=== PATIENT | female | born 2000 | race Two or more races ===

== ENCOUNTER 2019-11-20 22:00 | Emergency (ER) | payer OTHER ==
[2019-11-20 22:07] VITALS: BP 113/65; PULSE 66; TEMP 98
[2019-11-20] MEDS ORDERED: CEPHALEXIN MONOHYDRATE 500 MG CAPSULE (UD) PO ONE (23:05)
[2019-11-20] MEDS ORDERED: DIPHTH,PERTUSS(ACELL),TET 0.5 ML DISP.SYRIN IM ONE ×2 (23:05→23:15)
--- NOTE | 2019-11-20 23:09 | PDOC ---
History of Present Illness - General Chief Complaint: Pain Stated Complaint: PAIN Time Seen by Provider: 11/20/19 22:13 - History of Present Illness Initial Comments: 11/20/19 23:06 19-year-old female without comorbidities assures me there is no chance of presents for evaluation of bilateral hand pain. Patient states she was doing work in her closet at home when she fell and tripped while she was carrying a heavy piece of furniture which was made at a [employer]. She has 2 small abrasions on the area of the thenar eminence bilaterally. She complains of bilateral hand pain. She is unsure if she has a retained foreign body. Past History - Medical History Allergies/Adverse Reactions: Allergies Allergy/AdvReac Type Severity Reaction Status Date / Time No Known Allergies Allergy Verified 11/20/19 22:07 Home Medications: Ambulatory Orders Cephalexin [Keflex] 500 mg PO QID #28 capsule 11/20/19 COPD: No - Reproductive History Is Patient Now?: No - Psycho-Social/Smoking History Smoking History: Current some day smoker Information on smoking cessation initiated: No - Substance Abuse Hx (Audit-C & DAST Scrn) How often the patient has a drink containing alcohol: Never Score: In Men: 4 or > Positive; In Women: 3 or > Positive: 0 Screen Result (Pos requires Nsg. Audit-10AR): Negative In the last yr the pt used illegal drug/Rx for NonMed reason: Yes Score: Yes response is considered Positive: 1 Screen Result (Positive result requires Nsg. DAST-10): Positive Review of Systems - Review of Systems Musculoskeletal: Yes: See HPI *Physical Exam - Vital Signs Last Vital Signs Temp Pulse Resp BP Pulse Ox 98 F 66 18 113/65 100 11/20/19 22:04 11/20/19 22:04 11/20/19 22:04 11/20/19 22:04 11/20/19 22:04 - Physical Exam 11/20/19 23:06 Shoulder wrist and forearm range of motion is full and nonpainful. Bilateral hand tenderness diffusely. 2 small superficial abrasions on the first webspace bilaterally. Decreased range of motion of all the fingers without gross focal tenderness. No gross sensorimotor deficits neurovascular intact. Payroll Associate strength is decreased ED Treatment Course - RADIOLOGY Radiology Studies Ordered: Category Date Time Status HAND- LEFT [RAD] Stat Radiology 11/20/19 22:35 Taken HAND- RIGHT [RAD] Stat Radiology 11/20/19 22:35 Taken Medical Decision Making - Medical Decision Making 11/20/19 23:07 X-rays of bilateral hands show no evidence of destructive process fracture. There is subcutaneous air in the thenar eminence of the right hand. Prophylactic antibiotic given initial dose in the emergency room tetanus updated. Hand surgery follow-up stressed. Follow-up within 24 hours or return to the emergency room for wound check. I have reviewed the pathophysiology with the patient. They are in agreement with the treatment plan all questions were answered to their satisfaction. Understanding for follow-up without fail was also conveyed to the patient. Again they are in agreement. Discharge - Discharge Information Problems reviewed: Yes Clinical Impression/Diagnosis: Hand injury Clinical Impression/Diagnosis: (Ruled Out): Hand crush injury Condition: Stable Disposition: HOME - Admission No - Additional Discharge Information Prescriptions: Cephalexin [Keflex] 500 mg PO QID #28 capsule - Follow up/Referral Referrals: Arun Mares MD [Primary Care Provider] - - Patient Discharge Instructions Additional Instructions: Tylenol and Motrin as directed for pain. Please start the antibiotic and take them as directed tomorrow. Without fail follow-up with hand surgery in 24 hours or return to the emergency room in 24 hours for further evaluation and wound check. Please take the antibiotics as directed. Return to the emergency room sooner if problems develop. Gentle range of motion as we discussed in the emergency room prevent stiffness will help you. Keep the areas clean with soap and water and left open to air do not apply any ointment such as bacitracin or Neosporin. - Post Discharge Activity
[2019-11-20] MEDS ORDERED: CEPHALEXIN MONOHYDRATE 500 MG CAPSULE (UD) ONE (23:15)
== END 2019-11-20 23:21 | disposition home or self-care (01) ==
LOC: JER 22:00
PROC: 3E0234Z Introduction of Serum, Toxoid and Vaccine into Muscle, Percutaneous Approach (ICD-10-PCS; principal; 2019-11-20)
DX: M79.641 Pain in right hand (principal); M79.642 Pain in left hand
CPT/HCPCS: 73130-TC-LT-FY; 73130-TC-RT-FY; 90715; 99284-25

== ENCOUNTER 2020-12-24 15:22 | Emergency (ER) | payer OTHER ==
[2020-12-24 15:33] VITALS: BP 107/62; PULSE 91; TEMP 98.2; BMI 20.7
[2020-12-24] MEDS ORDERED: FAMOTIDINE 20 MG/50 ML IVPB 20 MG/50 ML MG IVPB ONE ×2 (16:38→16:54)
[2020-12-24] MEDS ORDERED: SODIUM CHLORIDE 1,000 ML IV STA (16:38)
[2020-12-24] MEDS ORDERED: METOCLOPRAMIDE HCL INJECTION 10 MG/2 ML VIAL IVPB ONE (16:38)
[2020-12-24 16:52] LABS: BASO % 0.1 % (0-2.0); EOS % 0.2 % (0-4.5); HEMATOCRIT 38.7 % (32.4-45.2); HEMOGLOBIN 13.2 GM/dL (10.7-15.3); LYMPH % 15.5 % (8-40); MCH 30.9 pg (25.7-33.7); MCHC 34.1 g/dl (32.0-36.0); MEAN CELL VOLUME 90.7 fl (80-96); MEAN PLT VOLUME 9.1 fl (7.5-11.1); MONO % 9.2 % (3.8-10.2); PLATELET COUNT 232 10^3/uL (134-434); RBC 4.27 M/mm3 (3.60-5.2); RDW 12.8 % (11.6-15.6); WHITE BLOOD COUNT 6.2 K/mm3 (4.0-10.0)
[2020-12-24] MEDS ORDERED: METOCLOPRAMIDE HCL INJECTION 10 MG/2 ML VIAL ONE (16:54)
[2020-12-24 16:55] LABS: EPI CELLS 20 /uL (0-25.1); HYALINE CASTS 3 /uL (0-3.1); PH,URINE 8.5 (5.0-8.0); URINE APPEARANCE CLEAR; URINE BACTERIA 136 /uL (0-1359); URINE BILIRUBIN NEGATIVE (NEGATIVE); URINE COLOR YELLOW; URINE GLUCOSE (UA) NEGATIVE (NEGATIVE); URINE KETONE 4+ (NEGATIVE); URINE LEUK ESTERASE NEGATIVE (NEGATIVE); URINE NITRITE NEGATIVE (NEGATIVE); URINE PROTEIN 1+ (NEGATIVE); URINE RBC 3 /uL (0-23.9); URINE WBC 5 /uL (0-25.8)
[2020-12-24 17:12] LABS: CALCIUM 9.6 mg/dL (8.5-10.1)
[2020-12-24 17:13] LABS: BLOOD UREA NITROGEN 5.9 mg/dL (7-18)
[2020-12-24 17:16] LABS: CREATININE 0.5 mg/dL (0.55-1.3)
[2020-12-24 17:17] LABS: BILIRUBIN,TOTAL 0.8 mg/dL (0.2-1); TOT PROT 8.6 g/dl (6.4-8.2)
== END 2020-12-24 20:45 | disposition home or self-care (01) ==
LOC: JER 15:22
PROC: 3E033NZ Introduction of Analgesics, Hypnotics, Sedatives into Peripheral Vein, Percutaneous Approach (ICD-10-PCS; principal; 2020-12-24)
PROC: 3E033GC Introduction of Other Therapeutic Substance into Peripheral Vein, Percutaneous Approach (ICD-10-PCS; 2020-12-24)
PROC: 3E0337Z Introduction of Electrolytic and Water Balance Substance into Peripheral Vein, Percutaneous Approach (ICD-10-PCS; 2020-12-24)
DX: O26.891 Other specified pregnancy related conditions, first trimester (principal); R11.2 Nausea with vomiting, unspecified; Z3A.01 Less than 8 weeks gestation of pregnancy
CPT/HCPCS: 36415; 76801-TC; 80053; 81003; 83690; 84702; 85025; 86850; 86900; 86901; 87086; 99283-25; 99284-25

== ENCOUNTER 2022-06-26 19:13 | Emergency (ER) | payer OTHER ==
[2022-06-26 19:19] VITALS: BP 129/63; PULSE 74; RESP 18; TEMP 98.7; BMI 25.7
[2022-06-26 21:29] LABS: PH,URINE 7.5 (5.0-8.0); URINE APPEARANCE CLEAR; URINE BILIRUBIN NEGATIVE (NEGATIVE); URINE COLOR YELLOW; URINE GLUCOSE (UA) NEGATIVE (NEGATIVE); URINE KETONE NEGATIVE (NEGATIVE); URINE LEUK ESTERASE NEGATIVE (NEGATIVE); URINE NITRITE NEGATIVE (NEGATIVE); URINE PROTEIN NEGATIVE (NEGATIVE); URINE UROBILINOGEN 0.2 mg/dL (0.2-1.0)
[2022-06-26 21:32] LABS: HCG,QUALITATIVE URINE Negative
[2022-06-26] MEDS ORDERED: LACTATED RINGERS SOLUTION 1000 ML INFUS.BAG IV ONE (21:59)
[2022-06-26] MEDS ORDERED: ACETAMINOPHEN 1000 MG/100 ML BAG IVPB ONE (21:59)
[2022-06-26] MEDS ORDERED: PROCHLORPERAZINE INJECTION 10 MG/2 ML VIAL IVPB ONE (22:00)
[2022-06-26] MEDS ORDERED: PROCHLORPERAZINE INJECTION 10 MG/2 ML VIAL ONE (22:08)
[2022-06-26] MEDS ORDERED: ACETAMINOPHEN INJECTION 100 ML IVPB ONE (22:13)
[2022-06-26 22:27] LABS: BASO % 0.2 % (0-2.0); EOS % 0.2 % (0-4.5); HEMATOCRIT 40.8 % (32.4-45.2); HEMOGLOBIN 13.8 GM/dL (10.7-15.3); LYMPH % 14.6 % (8-40); MCH 29.5 pg (25.7-33.7); MCHC 33.8 g/dl (32.0-36.0); MEAN CELL VOLUME 87.2 fl (80-96); MEAN PLT VOLUME 8.7 fl (7.5-11.1); MONO % 6.2 % (3.8-10.2); NEUT % 78.8 % (42.8-82.8); PLATELET COUNT 244 10^3/uL (134-434); RBC 4.68 M/mm3 (3.60-5.2); RDW 14.4 % (11.6-15.6); WHITE BLOOD COUNT 5.9 K/mm3 (4.0-10.0)
[2022-06-26 22:48] LABS: ALBUMIN 4.6 g/dl (3.4-5.0); CALCIUM 9.6 mg/dL (8.5-10.1)
[2022-06-26 22:51] LABS: CREATININE 0.7 mg/dL (0.55-1.3)
[2022-06-26 22:52] LABS: BLOOD UREA NITROGEN 8.3 mg/dL (7-18)
[2022-06-26 22:53] LABS: BILIRUBIN,TOTAL 0.6 mg/dL (0.2-1); TOT PROT 8.5 g/dl (6.4-8.2)
== END 2022-06-26 22:41 | disposition left against medical advice (07) ==
LOC: JERFT 19:13
PROC: 3E033GC Introduction of Other Therapeutic Substance into Peripheral Vein, Percutaneous Approach (ICD-10-PCS; principal; 2022-06-26)
DX: R51.9 Headache, unspecified (principal)
CPT/HCPCS: 36415; 80053; 81003; 84703; 85025; 99284-25

== ENCOUNTER 2023-09-14 16:22 | Emergency (ER) | payer OTHER ==
[2023-09-14 16:31] VITALS: BP 110/59; PULSE 75; RESP 20; TEMP 98; BMI 25.9
== END 2023-09-14 19:00 | disposition left against medical advice (07) ==
LOC: JER 16:22
DX: Z53.21 Procedure and treatment not carried out due to patient leaving prior to being seen by health care provider (principal)
CPT/HCPCS: 99281-25

== ENCOUNTER 2024-01-14 16:48 | Emergency (ER) | payer OTHER ==
[2024-01-14 17:06] VITALS: BP 124/76; PULSE 58; RESP 18; TEMP 98.8; BMI 25.9
[2024-01-14] MEDS ORDERED: METOCLOPRAMIDE HCL INJECTION 10 MG/2 ML VIAL ONE (18:36)
[2024-01-14] MEDS ORDERED: ACETAMINOPHEN INJECTION 100 ML ONE (18:37)
[2024-01-14] MEDS: ACETAMINOPHEN 1000 MG/100 ML BAG IVPB ONE (18:47)
[2024-01-14] MEDS: METOCLOPRAMIDE HCL INJECTION 10 MG/2 ML VIAL IVPB ONE (18:52)
[2024-01-14 20:06] LABS: HIV INTERPRETATION NEGATIVE (NEGATIVE)
== END 2024-01-14 20:28 | disposition home or self-care (01) ==
LOC: JER 16:48
PROC: 3E033NZ Introduction of Analgesics, Hypnotics, Sedatives into Peripheral Vein, Percutaneous Approach (ICD-10-PCS; principal; 2024-01-14)
PROC: 3E033GC Introduction of Other Therapeutic Substance into Peripheral Vein, Percutaneous Approach (ICD-10-PCS; 2024-01-14)
DX: R51.9 Headache, unspecified (principal); R11.0 Nausea
CPT/HCPCS: 36415; 86803; 87389; 99284-25; J0131